=== PATIENT | male | born 1985 | race Hispanic/Latino ===

== ENCOUNTER 2024-08-05 06:55 | Emergency (ER) | payer MEDICAID ==
[~2024-08-05] VITALS: Ht 180.3 cm; Wt 184.0 kg
[2024-08-05 07:08] LABS: HEMATOCRIT 42.2 % (35.0-50.0); HEMOGLOBIN 14.3 g/dL (12.0-18.0); LYMPHOCYTES 21.8 % (24-44); MCHC 33.9 g/dl (30-36); MCV 82.5 fl (81-99); MONOCYTES 6.7 % (0-12); NEUTROPHILS 66.5 % (39-80); PLATELET COUNT 201 K/uL (140-440); RBC 5.11 M/ul (4.3-5.7); RDW 15.6 (10.5-15.0)
[2024-08-05] MEDS ORDERED: ALLOPURINOL100 MG PO (07:23)
[2024-08-05] MEDS ORDERED: FUROSEMIDE20 MG PO (07:23)
[2024-08-05 07:24] LABS: INR 1.02 (0.80-1.30); PROTIME 13.3 Sec (11.2-14.2)
[2024-08-05] MEDS ORDERED: LISINOPRIL10 MG PO (07:24)
[2024-08-05] MEDS ORDERED: METFORMIN HCL1000 MG PO (07:24)
[2024-08-05 07:27] LABS: ALBUMIN 3.4 g/dL (3.4-5.0); ALBUMIN/GLOBULIN RATIO 0.72 (1.1-2.4); ANION GAP 12.9 (7-21); BILIRUBIN, TOTAL 0.3 mg/dL (0.2-1.0); BUN/CREATININE RATIO 15.11 (6.0-28.6); CALCIUM 8.2 mg/dL (8.5-10.1); CREATININE, SERUM 1.72 mg/dL (0.70-1.30); MAGNESIUM 1.9 mg/dL (1.8-2.4); POTASSIUM 3.9 mmol/L (3.5-5.1); PROTEIN, TOTAL 8.1 g/dL (6.4-8.2)
[2024-08-05] MEDS ORDERED: Insulin Regular, Human 100 UNIT/ML ML IV ONE (07:45)
[2024-08-05] MEDS ORDERED: ACETAMINOPHEN 500 MG TAB PO ONE (08:15)
[2024-08-05] MEDS ORDERED: IBUPROFEN 600 MG TAB PO ONE (08:15)
[2024-08-05] MEDS ORDERED: CYCLOBENZAPRINE HCL 10 MG TAB PO ONE (08:45)
[2024-08-05 10:17] VITALS: BP 142/82
--- NOTE | 2024-08-05 22:03 | EKG ---
[facility] [address] [facility] [place] [address] Signed Normal sinus rhythm Left axis deviation Possible Anterior infarct , age undetermined Abnormal ECG No previous ECGs available Confirmed by Seun Lazaro MD () on 08/05/2024 10:02:57 PM Electronically Signed By: SEUN LAZARO MD 08/05/242202 PATIENT NAME: DIPIKA PIERCE Electrocardiogram DATE OF : 81 PHYSICIAN: SEUN LAZARO MD REPORT #: [id number] REPORT IS CONFIDENTIAL AND NOT TO BE RELEASED WITHOUT AUTHORIZATION
== END 2024-08-05 10:17 | disposition home or self-care (01) ==
LOC: ED 06:55
PROVIDERS: Family Medicine
DX: R07.9 Chest pain, unspecified (principal); Z79.899 Other long term (current) drug therapy; Z79.84 Long term (current) use of oral hypoglycemic drugs
CPT/HCPCS: 36415; 71045; 80053; 83735; 84484; 85025; 85610; 93005; 93010; 96374; 99285-25; A9270; J1815